=== PATIENT | female | born 1975 | race Caucasian/White ===

== ENCOUNTER 2018-08-27 15:58 | Emergency (ER) | payer SELFPAY ==
[2018-08-27 16:08] VITALS: BP 114/71; PULSE 94; TEMP 98.1; BMI 25.4
--- NOTE | 2018-08-27 16:34 | PDOC ---
History of Present Illness - General Chief Complaint: Rash Stated Complaint: RASH ON THE FACE Time Seen by Provider: 08/27/18 16:14 History Source: Patient - History of Present Illness Timing/Duration: other Past History - Past Medical History Allergies/Adverse Reactions: Allergies Allergy/AdvReac Type Severity Reaction Status Date / Time Penicillins Allergy Verified 08/27/18 16:13 Sulfa (Sulfonamide Allergy Verified 08/27/18 16:13 Antibiotics) Home Medications: Ambulatory Orders NK [No Known Home Medication] 08/27/18 COPD: No - Surgical History Cholecystectomy: No - Immunization History Immunization Up to Date: No - Suicide/Smoking/Psychosocial Hx Smoking History: Never smoked Have you smoked in the past 12 months: No Information on smoking cessation initiated: No Hx Alcohol Use: No Drug/Substance Use Hx: No Review of Systems - Review of Systems Constitutional: No: Chills, Fever HEENTM: Yes: Throat Pain Respiratory: No: Cough *Physical Exam - Vital Signs Last Vital Signs Temp Pulse Resp BP Pulse Ox 98.1 F 94 H 18 114/71 100 08/27/18 16:04 08/27/18 16:04 08/27/18 16:04 08/27/18 16:04 08/27/18 16:04 - Physical Exam Comments: 08/27/18 16:37 appears anxious, frequently crying during eval General Appearance: Yes: Appropriately Dressed HEENT: positive: Normal ENT Inspection, Normal Voice, TMs Normal, Pharynx Normal. negative: Scleral Icterus (R), Scleral Icterus (L) Neck: positive: Supple Respiratory/Chest: negative: Respiratory Distress Integumentary: positive: Dry, Warm Neurologic: positive: Fully Oriented, Alert, Normal Mood/Affect Moderate Sedation - Procedure Monitoring Vital Signs: Procedure Monitoring Vital Signs Temperature 98.1 F 08/27/18 16:04 Pulse Rate 94 H 08/27/18 16:04 Respiratory Rate 18 08/27/18 16:04 Blood Pressure 114/71 08/27/18 16:04 O2 Sat by Pulse Oximetry (%) 100 08/27/18 16:04 Medical Decision Making - Medical Decision Making 08/27/18 16:36 42-year-old female, recently diagnosed with genital herpes and now on valtrex, here with complaint that her throat has been hurting for 2 days and think she saw "blisters". No ear pain, cough, fever or chills. Patient admits that she is now concerned she might have an STD in her throat as well. Patient appears anxious and frequently crying throughout evaluation with normal exam otherwise. No findings on exam to explain sore throat, no e/o STD, possibly viral. Will dc with PMD follow-up for further evaluation *DC/Admit/Observation/Transfer Diagnosis at time of Disposition: Sore throat - Discharge Dispostion Disposition: HOME Condition at time of disposition: Stable - Referrals - Patient Instructions Additional Instructions: The reason for you sore throat is unclear at this time as your exam was normal today. Please follow-up with your PMD this week for further evaluation - Post Discharge Activity
== END 2018-08-27 16:27 | disposition home or self-care (01) ==
LOC: JERFT 15:58
DX: J02.9 Acute pharyngitis, unspecified (principal); Z86.19 Personal history of other infectious and parasitic diseases
CPT/HCPCS: 99281-25